=== PATIENT | female | born 1985 | race Caucasian/White ===

== ENCOUNTER 2023-11-06 10:36 | Emergency (ER) | payer OTHER, SELFPAY ==
--- NOTE | ~2023-11-06 | XR_ITS ---
EXAMINATION: XR chest 2V DATE: 11/06/2023 11:02 INDICATION: Cough and congestion. TECHNIQUE: Frontal and lateral views of the chest were obtained. COMPARISON: None. FINDINGS: There is mild scarring at the lung apices. No pleural effusion or pneumothorax. The heart s ize is normal. IMPRESSION: 1. Mild scarring at the lung apices. Reviewed, dictated and finalized at location A.
[2023-11-06 10:37] VITALS: BP 135/63; PULSE 75; RESP 15; TEMP 36.8; O2SAT 100
[2023-11-06 11:33] LABS: Influenza A QL RT-PCR Negative (Negative); Influenza B QL RT-PCR Negative (Negative); RSV RNA, RT-PCR Negative (Negative); SARS-CoV-2 RNA PCR Negative (Negative)
--- NOTE | 2023-11-06 11:37 | ED.URI ---
HPI - URI/Sore Throat General Chief Complaint: Upper Respiratory Infection Stated Complaint: Exposure to Covid Time Seen by Provider: 11/06/23 10:46 Source: patient Mode of arrival: ambulatory Limitations: no limitations History of Present Illness HPI Narrative: Patient is a 38-year-old female who presents the ED with report of COVID exposure. Patient reports she has been around her granddaughter, her daughter, and her daughter's boyfriend over the weekend, who all tested positive for COVID-19 today. Patient reports she has been sick for the last 1 week with sinus congestion, cough, occasionally productive of brown sputum, decreased taste/smell. She assumed her symptoms were related to allergies as she has been gardening recently. Denies known fevers. Denies shortness of breath, nausea, vomiting, chest pain. Related Data Allergies Allergy/AdvReac Type Severity Reaction Status Date / Time bee venom protein (honey bee) Allergy Anaphylaxis Verified 11/06/23 10:44 strawberry Allergy Anaphylaxis Verified 11/06/23 10:44 Review of Systems Review of Systems: CONSTITUTIONAL: Denies fever, chills, or sweats. ENT: See HPI. CARDIOVASCULAR: Denies chest pain, palpitations, or edema. RESPIRATORY: See HPI. GASTROINTESTINAL: Denies abdominal pain, nausea, vomiting, or diarrhea. All systems reviewed & are unremarkable except as noted in HPI and below Exam Narrative: GENERAL: Well appearing, well-nourished, non-toxic, in no acute distress. HEAD: Normocephalic, atraumatic. ENT: No significant tonsillar hypertrophy or exudate. Uvula midline. No posterior pharynx erythema. Mucous membranes are moist. No stridor or distress. RESPIRATORY: Airway patent, respirations nonlabored. Clear to auscultation bilaterally, no rales, rhonchi, wheezing. No focal lung sounds. CARDIOVASCULAR: Regular rate and rhythm without murmurs, rubs, or gallops. MUSCULOSKELETAL: Moves all extremities. No gross deformities. SKIN: Warm, dry, normal color. NEURO: A&O X3. Speech clear. PSYCHIATRIC: Appropriate mood and affect. Normal interaction. Course Vital Signs Vital signs: Vital Signs Temperature 98.2 F 11/06/23 10:37 Pulse Rate 75 11/06/23 10:37 Respiratory Rate 15 11/06/23 10:37 Blood Pressure 135/63 11/06/23 10:37 Pulse Oximetry 100 11/06/23 10:37 Oxygen Delivery Room Air 11/06/23 10:37 Temperature 98.2 F 11/06/23 10:37 Pulse Rate 75 11/06/23 10:37 Respiratory Rate 15 11/06/23 10:37 Blood Pressure 135/63 11/06/23 10:37 Pulse Oximetry 100 11/06/23 10:37 Oxygen Delivery Room Air 11/06/23 11:55 MDM - URI/Sore Throat MDM Narrative Medical decision making narrative: Patient presented to ED for COVID testing, reports recent close exposure with several family members. Vital signs are stable upon arrival. Patient afebrile. In no acute distress. Influenza, RSV, COVID testing here negative. Chest x-ray was clear of pneumonia. Discussed laboratory findings with patient, though advised given her close exposure with acute symptomatology, recommended that she treat herself as COVID positive and quarantine appropriately. Discussed further management of COVID at home. Given return precautions. She agrees with plan. Discharged in stable condition. Medical Records Attestation: I reviewed the patient's medical records. Lab Data Attestation: I reviewed the patient's lab results. Labs: Lab Results 11/06/23 Range/Units 10:44 Influenza A (RT-PCR) Negative (Negative) Influenza B (RT-PCR) Negative (Negative) RSV (RT-PCR) Negative (Negative) SARS-CoV-2 RNA (RT-PCR) Negative (Negative) Imaging Data Attestation: I personally reviewed and interpreted this imaging study as follows: Radiologist's impression: ITS Impressions Chest X-Ray 11/06/23 11:05 IMPRESSION: 1. Mild scarring at the lung apices. Discharge Plan Discharge Clinical Impression: Exposure t
== END 2023-11-06 11:57 | disposition home or self-care (01) ==
PROVIDERS: Emergency Medicine; Emergency Provider Physician Assistant
DX: J06.9 Acute upper respiratory infection, unspecified (principal); Z20.822 Contact with and (suspected) exposure to COVID-19
CPT/HCPCS: 71046; 87637; 99283

== ENCOUNTER 2024-11-08 11:48 | Emergency (ER) | payer OTHER, SELFPAY ==
--- NOTE | ~2024-11-08 | XR_ITS ---
EXAMINATION: XR foot LT min 3V DATE: 11/08/2024 12:24 INDICATION: Pain at the first metatarsal post blunt trauma TECHNIQUE: Dorsoplantar, two oblique and lateral views of the left foot were obtained. COMPARISON: None. FINDINGS: Alignment is normal. No fracture. Joint spaces are normal. Soft tissues are unremarkable. IMPRESSION: 1. . Negative left foot radiographs. Reviewed, dictated and finalized at location A.
[2024-11-08 11:58] VITALS: BP 132/55; PULSE 73; RESP 16; TEMP 36.8; O2SAT 100
--- NOTE | 2024-11-08 12:31 | ED_ITS ---
HPI - Extremity Injury (Lower) General Chief Complaint: Extremity Injury, Lower Stated Complaint: Left Foot Pain Time Seen by Provider: 11/08/24 12:24 Source: patient and RN notes reviewed Mode of arrival: ambulatory Limitations: no limitations History of Present Illness HPI Narrative: Patient presents today complaining of crush injury to the left foot. 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 She is having pain to the 1st toe extending to the mid 1st metatarsal with some tingling to the affected toenail. Denies pain or injury to the remainder of the foot and toes. She has been ambulatory since the injury and currently rates her pain 8/10. She has applied ice prior to arrival. Related Data Allergies Allergy/AdvReac Type Severity Reaction Status Date / Time bee venom protein (honey bee) Allergy Anaphylaxis Verified 11/08/24 12:01 strawberry Allergy Anaphylaxis Verified 11/08/24 12:01 PMFSH Comments At time of signature, I have reviewed and agree with nursing past medical, surgical, social and family history unless otherwise noted. Please see nursing chart for further information. There is no relevant family history pertinent to the presenting complaint Exam Narrative: GENERAL: Well-appearing, well-nourished, and in no acute distress. HEAD: Normocephalic, atraumatic. EYES: EOMI. No redness or drainage. Conjunctivae normal. ENT: Mucous membranes pink and moist. NECK: Normal AROM. CHEST: No respiratory distress. EXTREMITIES: Left foot: Tenderness to the 1st toe extending to the mid 1st metatarsal. No edema, ecchymosis, deformity noted. No tenderness to the remainder of the toes foot, ankle. No erythema, ecchymosis, edema noted to the foot. Distal sensation intact in all 5 toes. Capillary refill normal. Pedal pulse normal. Full range of motion of toes and ankle. SKIN: Warm, dry, no rash. Capillary refill normal. Normal skin turgor. NEURO: No focal deficits. Alert and oriented x3. Gait steady. PSYCH: Normal affect. No signs of depression or anxiety. Course Course Level of Care: Express Care Visit Vital Signs Vital signs: Vital Signs Temperature 98.3 F 11/08/24 11:58 Pulse Rate 73 11/08/24 11:58 Respiratory Rate 16 11/08/24 11:58 Blood Pressure 132/55 L 11/08/24 11:58 Pulse Oximetry 100 11/08/24 11:58 Temperature 98.3 F 11/08/24 11:58 Pulse Rate 73 11/08/24 11:58 Respiratory Rate 16 11/08/24 11:58 Blood Pressure 132/55 L 11/08/24 11:58 Pulse Oximetry 100 11/08/24 11:58 Reviewed MDM - Extremity Injury (Lower) MDM Narrative Medical decision making narrative: 39-year-old female patient presents left 1st toe and metatarsal pain after dropping some heavy objects on her toe prior to arrival. Exam shows tenderness to toe and metatarsal without any other acute findings. She has applied ice prior to arrival. X-ray is negative for acute findings. Recommend conservative treatment with ice and NSAIDs with PCP or orthopedic follow-up in 7-10 days if symptoms persist. Vital signs stable. Patient agrees with plan. Anticipatory guidance given. Differential Diagnosis Differential diagnosis: Likely other (Toe fracture, foot fracture, contusion) Imaging Data Radiologist's impression: ITS Impressions Foot X-Ray 11/08/24 12:28 IMPRESSION: 1. . Negative left foot radiographs. Critical Care Time Critical Care Time Critical Care Time: No Discharge Plan Discharge Clinical Impression: Contusion of foot, left Qualifiers: Encounter type: initial encounter Qualified Code(s): S90.32XA - Contusion of left foot, initial encounter Patient Disposition: Home Condition: Stable Instructions: Contusion in Adults (ED) Additional Instructions: Your x-ray is negative today. Continue to ice the foot. Take [id number] medications such as Tylenol or ibuprofen for pain if needed. Follow-up with your PCP in 7-10 days if symptoms are not improving. Your blood pressure was elevated above 120/80 today at Urgent Care. This puts you above the threshold for follow up. Please schedule a followup visit with your personal physician as soon as possible, for further evaluation and treatment. Even blood pressure exceeding 120/80 may indicate pre-hypertension. Patient Language: Swiss Follow-up/Referrals: PHYSICIAN,FOREST PATHOLOGY PROFESSOR [Primary Care Provider] - Time of Disposition: 12:37
== END 2024-11-08 12:41 | disposition home or self-care (01) ==
PROVIDERS: Emergency Provider Nurse Practitioner
DX: S90.32XA Contusion of left foot, initial encounter (principal); W20.8XXA Other cause of strike by thrown, projected or falling object, initial encounter
CPT/HCPCS: 73630; 99213; G0463

== ENCOUNTER 2024-12-30 09:04 | Emergency (ER) | payer OTHER, SELFPAY ==
[2024-12-30 09:11] VITALS: BP 130/81; PULSE 73; RESP 18; TEMP 36.8; O2SAT 99
--- NOTE | 2024-12-30 09:20 | ED_ITS ---
HPI - General Adult General Chief complaint: Upper Respiratory Infection Stated complaint: URI symptoms 2 weeks Time Seen by Provider: 12/30/24 09:06 History of Present Illness HPI narrative: Marie Loera is a 39 y/o female who presents today with complaints of having cough intermittently productive for 2 weeks then a 3rd subjective fevers congestion not feeling well. She denies chest pain or shortness of breath. No nausea vomiting. Related Data Allergies Allergy/AdvReac Type Severity Reaction Status Date / Time bee venom protein (honey bee) Allergy Anaphylaxis Verified 12/30/24 09:10 strawberry Allergy Anaphylaxis Verified 12/30/24 09:10 Review of Systems Review of Systems: All systems reviewed & are unremarkable except as noted in HPI and below Exam Narrative: GENERAL: well-nourished, and in no acute distress. HEAD: Normocephalic, atraumatic. EYES: PERRLA and EOMI. ENT: Nares clear, no rhinorrhea or epistaxis. Mucous membranes moist. Oropharynx without tonsillar hypertrophy exudate or other lesions. Bilateral TMs pearly gallardo nonbulging NECK: Supple. No adenopathy or masses. No carotid bruits or JVD CHEST: Clear to auscultation. No respiratory distress. No wheezes rales or rhonchi HEART: Regular rate and rhythm. No murmur heard. Normal peripheral pulses. ABDOMEN: Soft, nontender, nondistended, normal active bowel sounds. EXTREMITIES: Normal range of motion. No edema. SKIN: Warm, dry, no rash. NEURO: No focal deficits. Alert and oriented x3. PSYCH: Normal mood and affect. Course Vital Signs Vital signs: Vital Signs Temperature 36.8 C 12/30/24 09:11 Pulse Rate 73 12/30/24 09:11 Respiratory Rate 18 12/30/24 09:11 Blood Pressure 130/81 12/30/24 09:11 Pulse Oximetry 99 12/30/24 09:11 Oxygen Delivery Room Air 12/30/24 09:11 Temperature 36.8 C 12/30/24 09:11 Pulse Rate 73 12/30/24 09:11 Respiratory Rate 18 12/30/24 09:11 Blood Pressure 130/81 12/30/24 09:11 Pulse Oximetry 99 12/30/24 09:11 Oxygen Delivery Room Air 12/30/24 09:11 Medical Decision Making [facility] Narrative Medical decision making narrative: This 39 year old patient presents with symptoms most suggestive of respiratory tract infection. Lungs are clear bilaterally without any respiratory distress or accessory muscle use.' With symptoms lasting now two weeks, not feeling better maybe a little worse and subjective fevers will start pt on Azithromycin for Bronchitis. Patient is discharged home in stable condition with expectant management. Return precautions were provided. Procedures: Pulse oximetry interpretation - not hypoxic. Review of medical records. DISPOSITION: Discharged home in stable condition. IMPRESSION: Acute Bronchitis Medical Records Medical records reviewed: Yes I reviewed the external patient's medical records. Vital Signs Vital Signs: Vital Signs Temperature 36.8 C 12/30/24 09:11 Pulse Rate 73 12/30/24 09:11 Respiratory Rate 18 12/30/24 09:11 Blood Pressure 130/81 12/30/24 09:11 Pulse Oximetry 99 12/30/24 09:11 Oxygen Delivery Room Air 12/30/24 09:11 Temperature 36.8 C 12/30/24 09:11 Pulse Rate 73 12/30/24 09:11 Respiratory Rate 18 12/30/24 09:11 Blood Pressure 130/81 12/30/24 09:11 Pulse Oximetry 99 12/30/24 09:11 Oxygen Delivery Room Air 12/30/24 09:11 VItals reviewed by me Discharge Plan Discharge Clinical Impression: Bronchitis Patient Disposition: Home Condition: Stable Instructions: Antibiotic Form Additional Instructions: continue to push fluids drinking plenty of water Continue the Mucinex Continue the Azithromycin as ordered Get plenty of rest Follow up with your PCP in 1 week If you should develop any new or worsening symptoms return to the ER. Patient Language: Urdu Prescriptions: New azithromycin 250 mg tablet 250 mg PO DAILY 4 Days Qty: 4 0RF Rx Instructions: start on day 2 of therapy Follow-up/Referrals: PHYSICIAN,PRODUCT ANALYST [Primary Care Provider, Internal Medicine] Stand Alone Forms: Work/School Release IP Time of Disposition:
[2024-12-30] MEDS: AZITHROMYCIN 500 MG TABLET PO (09:33)
[2024-12-30 09:37] VITALS: BP 119/68; PULSE 66; RESP 16; TEMP 36.8; O2SAT 100
== END 2024-12-30 09:40 | disposition home or self-care (01) ==
PROVIDERS: Emergency Provider Nurse Practitioner Family
DX: J40 Bronchitis, not specified as acute or chronic (principal)
CPT/HCPCS: 99283